=== PATIENT | female | born 1990 | race Caucasian/White ===

== ENCOUNTER 2021-01-17 18:12 | Emergency (ER) | payer OTHER ==
[~2021-01-17] VITALS: Ht 175.3 cm; Wt 70.3 kg
== END 2021-01-17 20:29 | disposition home or self-care (01) ==
LOC: ER 18:12
DX: M25.562 Pain in left knee (principal); M25.572 Pain in left ankle and joints of left foot; Z87.828 Personal history of other (healed) physical injury and trauma
CPT/HCPCS: 99283